=== PATIENT | male | born 1995 | race Caucasian/White ===

== ENCOUNTER 2016-12-11 11:49 | Emergency (ER) | payer BC ==
[~2016-12-11] VITALS: Ht 172.7 cm; Wt 67.6 kg
[2016-12-11 11:54] VITALS: Ht 172.7 cm; Wt 67.6 kg
--- OUTSIDE RECORDS SUMMARY | 2016-12-11 11:54 | XMS REPORT | Summary of Care ---
Author Author Lesley White M.D. Organization Unknown Address Unknown Phone Unavailable Care Team Providers Care Waste Disposal Leakage Tester Name Role Phone Lesley White M.D. Unavailable Unavailable Alejandro Bajwa Unavailable Unavailable Dakota Mujica M.D. 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 * Quantity: 1 Refills: 6 Bora Bradshaw P.A.* Started 20-Feb-2009 Mghqbd68.2 GM Inhaler Cetaphil 70%/ Triamcinolone .10%/ Cream 30% Apply to affected area twice a day. * Quantity: 1 Refills: 0 Lesley White M.D.* [facility] * Refills: 0 Barb Mujica M.D.* Started ActiveEpiPen 2-John 0.3 MG/0.3ML KAJAL USE DIRECTED * Quantity: 1 Refills: 0 Barb Mujica M.D.* Started 13-Jan-2010 Active2 EA Pen Proventil HFA 108 (90 Base) MCG/ACT Inhalation Aerosol Solution USE 2 PUFFS EVERY 4 HOURS NEEDED FOR COUGH, WHEEZE OR SHORTNESS OF BREATHE * Quantity: 1 Refills: 1 Leslye White M.D.* Started 09-Jul-2010 Active6.7 GM Inhaler Allergies and Adverse Reactions Name Dates Details No Known Drug Allergies Status: Active Past Medical History Name Dates Details History of allergy (V15.09, Z88.9) Status: Resolved History of Asthma (493.90, J45.909) Status: Resolved Procedures Procedure Dates Details History of Tonsillectomy Procedures not documented Immunization Name Dates Details Immunizations not documented Family History Unknown Family Member* Name Dates Details Family history of Hay Fever Comments: Family History Status: Active Family history of Allergies Comments: Family History Status: Active Brother* Name Dates Details Family history of eczema (V19.4, Z84.0) Status: Active Social History Name Dates Details Smoking Status* Never smoker Vital Signs Date Test Result Details 09:46 BP Systolic 111 mm[Hg] Status: BP Diastolic 73 mm[Hg] Status: Temperature 98.6 f Status: Heart Rate 64 /min Status: Height 68.1 in Status: Weight 141.1 lb Status: Body Mass Index Calculated 21.39 kg/m2 Status: Body Surface Area Calculated 1.76 m2 Status: Results Date Description Value Details Results not documented Plan of Care Planned Observations* Name Dates Details Planned Goals not documented Goal Planned Encounters* Appointment; Provider: Lesley White On 04-May-2017 10:45 * Appointment; Provider: Ashly Ferreira On 17-Aug-2008 11:15 Instructions * Instructions not documented Encounters Appointment; Lesley White Encounter Diagnosis: Problem not documented On 09:30
--- OUTSIDE RECORDS SUMMARY | 2016-12-11 11:54 | XMS REPORT | Summary of Care ---
Author Author Lesley White M.D. Organization Unknown Address Unknown Phone Unavailable Care Team Providers Care Petroleum Engineer Name Role Phone Lesley White M.D. Unavailable [...] asthma, well controlled (493.90, J45.20) Status: Active Medications Name Dates Details Nasonex 50 MCG/ACT Nasal Suspension 1 spray each nostril twice a day Quantity: 1 Lesley White M.D.* Started 09-Aug-2008 Okevkg04 GM Inhaler Symbicort 160-4.5 MCG/ACT Inhalation Aerosol USE DIRECTED. * Quantity: 1 Refills: 6 Bora Bradshaw P.A.* Started 20-Feb-2009 Jlkkst63.2 GM Inhaler Cetaphil 70%/ Triamcinolone .10%/ Cream 30% Apply to affected area twice a day. * Quantity: 1 Refills: 0 Lesley White M.D.* [facility]All[facility] * Refills: 0 Barb Mujica M.D.* Started ActiveEpiPen 2-John 0.3 MG/0.3ML KAJAL USE DIRECTED * Quantity: 1 Refills: 0 Barb Mujica M.D.* Started 13-Jan-2010 Active2 EA Pen Proventil HFA 108 (90 Base) MCG/ACT Inhalation Aerosol Solution USE 2 PUFFS EVERY 4 HOURS NEEDED FOR COUGH, WHEEZE OR SHORTNESS OF BREATHE * Quantity: 1 Refills: 1 Lesley White M.D.* Started 09-Jul-2010 Active6.7 GM Inhaler [...]
--- OUTSIDE RECORDS SUMMARY | 2016-12-11 11:54 | XMS REPORT | Summary of Care ---
Author Author Lesley White M.D. Organization Unknown Address Unknown Phone Unavailable Care Team Providers Care Rubber Worker Name Role Phone Lesley White M.D. Unavailable Unavailable Leeann Hobson, M Unavailable Unavailable Guanako Felix, Dakota Unavailable Unavailable Issa Felix, Jerzy Unavailable Unavailable Raphael Griffith PP Unavailable Unavailable Unavailable Functional Status Functional Status Health Issues* Name Dates Details Functional status health issues are not documented Status: Cognitive Status Health Issues* Name Dates Details Cognitive status health issues are not documented Status: Problems Name Dates Details History of allergy (V15.09, Z88.9) Status: Active Allergic rhinitis (477.9, J30.9) Status: Active Chronic sinusitis (473.9, J32.9) Status: Active Asthma (493.90, J45.909) Status: Active Medications Name Dates Details Nasonex 50 MCG/ACT Nasal Suspension 1 spray each nostril twice a day Quantity: 1 Lesley White M.D.* Started 09-Aug-2008 Wbwesh14 GM Inhaler Symbicort 160-4.5 MCG/ACT Inhalation Aerosol USE DIRECTED. * Quantity: 1 Refills: 6 Bora Bradshaw P.ASary* Started 20-Feb-2009 Mokyys49.2 GM Inhaler Cetaphil 70%/ Triamcinolone .10%/ Cream 30% Apply to affected area twice a day. * Quantity: 1 Refills: 0 Lesley White M.D.* Started ActiveNorel SR 8-50-40-325 MG TB12 TAKE 1 TABLET EVERY 12 HOURS NEEDED. * Quantity: 60 Refills: 3 Lesley White M.D.* [facility]All[facility] * Refills: 0 Barb Mujica M.D.* Started ActiveBenzoyl Peroxide Creamy Wash 8 % LIQD USE WASH ONCE DAILY DIRECTED. * Quantity: 1 Refills: 5 David Parsons M.D.* Started 02-Aug-2009 Uhueiz797.1 GM Bottle EpiPen 2-John 0.3 MG/0.3ML KAJAL USE DIRECTED * Quantity: 1 Refills: 0 Barb Mujica M.D.* Started 13-Jan-2010 Active2 EA Pen Proventil HFA 108 (90 Base) MCG/ACT Inhalation Aerosol Solution USE 2 PUFFS EVERY 4 HOURS NEEDED FOR COUGH, WHEEZE OR SHORTNESS OF BREATHE * Quantity: 1 Refills: 1 Lesley White M.D.* Started 09-Jul-2010 Active6.7 GM Inhaler Omnaris 50 MCG/ACT Nasal Suspension 1 [place] each nostril daily; max dose QID prn * Quantity: 2 Refills: 3 Lesley White M.D.* Started 01-Sep-2010 Dcmlth48.5 GM Inhaler Allergies and Adverse Reactions Name [...] of Allergies Comments: Family History Status: Active Social History Name Dates Details Smoking Status* Never smoker Vital Signs Date Test Result Details No Known Vitals to report Results Date Description Value Details Results not documented Plan of Care Planned Observations* Name Dates Details Planned Goals not documented Goal Planned Encounters* Appointment; Provider: Lesley White On 09:30 * Appointment; Provider: Ashly Ferreira On 17-Aug-2008 11:15 Instructions * Instructions not documented Encounters No Encounter data documented Encounter Diagnosis: Problem not documented On
--- OUTSIDE RECORDS SUMMARY | 2016-12-11 11:54 | XMS REPORT | Continuity of Care Document ---
Author Author [facility] Address Unknown Phone Unavailable Allergies Medications Problems Date Dx Coded Attending Type Code Diagnosis Diagnosed By 03/15/2013 MARILUZ GRECO MD V06.5 TETANUS-DIPHTH (TD)(DT) Procedures Code Description [place] [address] IMMUNIZATION ADMIN MARILUZ GRECO MD 03/15/2013 61178 TDAP VACCINE >7 IM MARILUZ GRECO MD 03/15/2013 Results Encounters ACCT No. Visit Date/Time Discharge Status Pt. Type Provider Facility Loc./Unit Complaint [id number] 03/15/2013 10:22:00 03/15/2013 10 :22:00 [facility] Outpatient MARILUZ GRECO MD
--- OUTSIDE RECORDS SUMMARY | 2016-12-11 11:54 | XMS REPORT | Summary of Care ---
Author Author Lesley White M.D. Organization Unknown Address Unknown Phone Unavailable Care Team Providers Care [employer] Humanities Teacher Name Role Phone Lesley White M.D. Unavailable [...] Quantity: 1 Lesley White M.D.* Started 09-Aug-2008 Btbclf22 GM Inhaler Symbicort 160-4.5 MCG/ACT Inhalation Aerosol USE DIRECTED. * Quantity: 1 Refills: 6 Bora Bradshaw P.A.* Started 20-Feb-2009 Bfayhc77.2 GM Inhaler Cetaphil 70%/ Triamcinolone .10%/ Cream 30% Apply to affected area twice a day. * Quantity: 1 Refills: 0 Lesley White M.D.* Started ActiveNorel SR 8-50-40-325 MG TB12 TAKE 1 TABLET EVERY 12 HOURS NEEDED. * Quantity: 60 Refills: 3 Lesley White M.D.* [facility]All[facility] * Refills: 0 Barb Mujica M.D.* Started ActiveBenzoyl Peroxide Creamy Wash 8 % LIQD USE WASH ONCE DAILY DIRECTED. * Quantity: 1 Refills: 5 David Parsons M.D.* Started 02-Aug-2009 Aojaxp576.1 GM Bottle EpiPen 2-John 0.3 MG/0.3ML KAJAL [...] Inhaler Omnaris 50 MCG/ACT Nasal Suspension 1 [place] each nostril daily; max dose QID prn * Quantity: 2 Refills: 3 Lesley White M.D.* Started 01-Sep-2010 Keoqgq69.5 GM Inhaler Allergies and Adverse Reactions Name [...] not documented Goal Planned Encounters* Appointment; Provider: Ashly Ferreira On 17-Aug-2008 11:15 Instructions * Instructions not documented Encounters Appointment; Lesley White Encounter Diagnosis: Problem not documented On 09:30
--- OUTSIDE RECORDS SUMMARY | 2016-12-11 11:54 | XMS REPORT | Summary of Care ---
Author Author Lesley White M.D. Organization Unknown Address Unknown Phone Unavailable Care Team Providers Care Winery Worker Name Role Phone Lesley White M.D. 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 * Quantity: 1 Refills: 6 Leeann Bora P.A.* Started 20-Feb-2009 Xlsleh14.2 GM Inhaler Cetaphil 70%/ Triamcinolone .10%/ Cream 30% Apply to affected area twice a day. * Quantity: 1 Refills: 0 Lesley White M.D.* [facility] * Refills: [...]
--- OUTSIDE RECORDS SUMMARY | 2016-12-11 11:54 | XMS REPORT | Summary of Care ---
Author Author Lesley White M.D. Organization Unknown Address Unknown Phone Unavailable Care Team Providers Care Architect Name Role Phone Lesley White M.D. Unavailable [...] Quantity: 1 Lesley White M.D.* Started 09-Aug-2008 Ckclce26 GM Inhaler Symbicort 160-4.5 MCG/ACT Inhalation Aerosol USE DIRECTED. * Quantity: 1 Refills: 6 Leeann Bora P.A.* Started 20-Feb-2009 Nlbsif85.2 GM Inhaler Cetaphil 70%/ Triamcinolone .10%/ Cream 30% Apply to affected area twice a day. * Quantity: 1 Refills: 0 Lesley White M.D.* Started [facility]All[facility] Immun[facility] * Refills: [...]
--- NOTE | 2016-12-11 12:05 | NUR ---
PROVIDER DR. JAMES IN ROOM WITH PT.
[2016-12-11] MEDS ORDERED: NORMAL SALINE 1,000 ML IV ONE (12:10)
[2016-12-11] MEDS ORDERED: ONDANSETRON 4mg/2ml INJECTION IV PRN (12:15)
[2016-12-11] MEDS ORDERED: BUDE10.2 PO (12:21)
[2016-12-11] MEDS ORDERED: ALBU6.7H INH (12:21)
[2016-12-11] MEDS ORDERED: AMPH20TA3 PO (12:21)
[2016-12-11] MEDS ORDERED: HYDROMORPHONE 2mg/ml INJECTION IV ONE (12:30)
[2016-12-11] MEDS ORDERED: KETOROLAC 30mg/ml INJECTION IV ONE (12:30)
[2016-12-11 12:44] LABS: BASOPHILS % (AUTO) 0.1 % (0-2); EOSINOPHILS % (AUTO) 0.2 % (0-4); HCT - HEMATOCRIT 42.7 % (41-53); HGB - HEMOGLOBIN 14.8 GM/DL (13.5-17.5); IMMATURE GRANULOCYTE # (AUTO) 0.02 T/MM3 (0.00-0.03); IMMATURE GRANULOCYTE % (AUTO) 0.2 % (0.0-0.5); LYMPHOCYTES # (AUTO) 1.1 T/MM3 (1-4.8); LYMPHOCYTES % (AUTO) 10.5 % (23-45); MEAN CORPUSCULAR HGB 31.1 UUG (26-34); MEAN CORPUSCULAR HGB CONC(MCHC 34.7 GM/DL (31-37); MEAN CORPUSCULAR VOLUME 89.7 UM3 (80-100); MEAN PLATELET VOLUME 9.8 UM3 (9.4-12.4); MONOCYTES # (AUTO) 0.4 T/MM3 (0-0.8); MONOCYTES % (AUTO) 4.2 % (0-9.0); NEUTROPHILS #(AUTO)-ABSOLUTE 8.8 T/MM3 (1.8-7.7); NEUTROPHILS % (AUTO) 84.8 % (33-66); RED BLOOD COUNT 4.76 M/MM3 (4.50-5.90); WBC - WHITE BLOOD COUNT 10.3 T/MM3 (4.5-11.0)
--- OUTSIDE RECORDS SUMMARY | 2016-12-11 12:46 | XMS REPORT | Continuity of Care Document ---
Author Author [facility] Address Unknown Phone Unavailable Allergies Medications Problems Date Dx Coded Attending Type Code Diagnosis Diagnosed By 03/15/2013 MARILUZ GRECO MD V06.5 TETANUS-DIPHTH (TD)(DT) Procedures Code Description [place] [address] IMMUNIZATION ADMIN MARILUZ GRECO MD 03/15/2013 39477 TDAP VACCINE >7 IM MARILUZ GRECO MD 03/15/2013 Results Encounters ACCT No. Visit Date/Time Discharge Status Pt. Type Provider Facility Loc./Unit Complaint [id number] 03/15/2013 10:22:00 03/15/2013 10 :22:00 [facility] Outpatient MARILUZ GRECO MD
[2016-12-11 12:53] LABS: ALBUMIN 4.7 G/DL (3.5-5.0); ALBUMIN/GLOBULIN RATIO 1.7 RATIO (1.1-2.2); ALKALINE PHOSPHATASE 52 U/L (38-126); ALT (SGPT) 89 U/L (21-72); ANION GAP 10 MEQ/L (5-15); AST (SGOT) 53 U/L (17-59); BUN/CREATININE RATIO 18 RATIO (6-26); CALCIUM 9.6 MG/DL (8.4-10.2); CHLORIDE 105 MEQ/L (98-107); CO2 - CARBON DIOXIDE 29 MEQ/L (22-30); CREATININE 0.8 MG/DL (0.8-1.5); GLOMERULAR FILTRATION RATE 122; GLUCOSE 88 MG/DL (75-110); SODIUM 144 MEQ/L (134-144); TOTAL PROTEIN 7.4 G/DL (6.3-8.2)
--- NOTE | 2016-12-11 13:10 | NUR ---
XRAY PT TO XRAY.
--- NOTE | 2016-12-11 13:27 | NUR ---
XRAY PT RETURNED FROM XRAY.
--- NOTE | 2016-12-11 14:13 | DI ---
EXAM: CHEST 1 VIEW COMPARISON: None available. HISTORY: ITS.REASON: trauma . FINDINGS: The cardiomediastinal silhouette is within limits of normal. The pulmonary vascularity appears unremarkable. The lungs are clear. There is no evidence for pleural effusion. There is no evidence for a pneumothorax. There is mild right AC joint arthrosis. No evidence for displaced rib fracture is identified. No pneumothorax or pulmonary contusion is seen. There is a fracture of the mid diaphysis of the left clavicle which appears comminuted and inferiorly displaced ashaft width. IMPRESSION: 1. Comminuted inferiorly displaced fracture at the mid diaphysis of the left clavicle. 2. Right AC joint arthrosis. 3. Otherwise unremarkable. LOCATION OF DICTATION: [facility] – [place] .
--- NOTE | 2016-12-11 14:15 | DI ---
EXAM: CLAVICLE LEFT COMPARISON: None available. HISTORY: ITS.REASON: trauma . FINDINGS: There is a comminuted fracture of the mid diaphysis of the left clavicle which is inferiorly displaced a shaft width. The left scapula and proximal humerus and left upper ribs appear to be intact. IMPRESSION: Comminuted inferiorly displaced fracture of the mid diaphysis of the left clavicle. LOCATION OF [place]CT[place] [facility] [place]
--- NOTE | 2016-12-11 14:18 | NUR ---
PROVIDER DR. JAMES IN ROOM WITH PT.
--- NOTE | 2016-12-11 14:18 | DI ---
EXAM: PELVIS 1-2 VIEW DEDICATED PELV COMPARISON: None available. HISTORY: ITS.REASON: trauma . FINDINGS: There is no evidence for acute fracture, subluxation, or dislocation. No osseous abnormalities are identified. The superior and inferior rami, sacral arches, and proximal femurs are intact. IMPRESSION: Unremarkable exam. No evidence for acute fracture identified. LOCATION [place] [facility] [place]
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
--- NOTE | 2016-12-11 14:28 | NUR ---
PROVIDER DR. JAMES IN ROOM WITH PT.
[2016-12-11 14:32] LABS: BLOOD, URINE 1+ (NEGATIVE); COLOR,URINE YELLOW (YELLOW); LEUKOCYTE ESTERASE ,URINE NEGATIVE (NEGATIVE); NITRITE,URINE NEGATIVE (NEGATIVE)
[2016-12-11] MEDS ORDERED: OXYC1TAB8 PO (14:33)
[2016-12-11 14:34] VITALS: BP 122/68; PULSE 78; RESP 18; TEMP 98.2; O2SAT 98
--- NOTE | 2016-12-11 14:40 | NUR ---
DISCHARGE PT LEFT ER W/ INSTRUCTIONS FOR CONT CARE OF CLAVICLE FX W/ SPLINT AND RX X1 OF PERCOCET. PT VERBALIZED UNDERSTANDING AND SIGNED FORM. PT LEFT AMBULATORY ALERT VS CHARTED IN NO ACUTE DISTRESS W/ CONDITION IMPROVED.
[2016-12-11 14:52] LABS: BACTERIA,URINE TRACE (NEGATIVE); SQUAMOUS EPITHELIAL CELL,UR 0-5; WBC,URINE NONE SEEN /HPF (0-5)
== END 2016-12-11 14:34 | disposition home or self-care (01) ==
LOC: ED 11:49
DX: S42.022A Displaced fracture of shaft of left clavicle, initial encounter for closed fracture (principal); V28.0XXA Motorcycle driver injured in noncollision transport accident in nontraffic accident, initial encounter; Y93.89 Activity, other specified; Y92.39 Other specified sports and athletic area as the place of occurrence of the external cause; Y99.8 Other external cause status
CPT/HCPCS: 36415; 71010; 72170; 73000; 80053; 81001; 85025; 96374; 96375; 99284; J1170; J1885; J2405; J7030